=== PATIENT | female | born 2000 | race Two or more races ===

== ENCOUNTER 2025-01-28 20:24 | Emergency (ER) | payer OTHER ==
[~2025-01-28] VITALS: Ht 154.9 cm; Wt 56.8 kg
[2025-01-28 20:27] VITALS: BP 145/128; PULSE 124; RESP 22; TEMP 98.3; O2SAT 100
[2025-01-28] MEDS ORDERED: ONDANSETRON HCL 4 MG/2 ML VIAL IM ONE (21:00)
[2025-01-28] MEDS ORDERED: LIDOCAINE VISCOUS 2% 15ML UD MT ONE (21:00)
[2025-01-28] MEDS ORDERED: MAALOX PLUS or MAALOX 30 ML PO ONE (21:00)
[2025-01-28 21:26] LABS: Hematocrit 44.4 % (36.0-46.0); Hemoglobin 15.1 g/dL (12.2-16.2); Mean Corpuscular Hemoglobin 28.0 pg (28.0-32.0); Mean Corpuscular Volume 82.3 fL (80.0-100.0); Nucleated Red Blood Cells % 0.2 %
[2025-01-28 21:40] LABS: Alkaline Phosphatase 79 U/L (46-116); Anion Gap 14 (5-15); BUN/Creatinine Ratio 7.2 (10.0-20.0); Calcium 10.0 mg/dL (8.7-10.4); Carbon Dioxide 24 mmol/L (20-31); Chloride 103 mmol/L (98-107); Sodium 141 mmol/L (136-145)
[2025-01-28 21:41] LABS: Bilirubin, Total 0.5 mg/dL (0.2-1.0)
[2025-01-28 21:44] LABS: Alanine Aminotransferase 93 U/L (7-40); Albumin 5.0 g/dL (3.2-4.8); Blood Urea Nitrogen 6 mg/dL (9-23); Glucose 113 mg/dL (74-106); Lipase 68 U/L (12-53); Potassium 3.3 mmol/L (3.5-5.1); Total Protein 8.4 g/dL (5.7-8.2)
[2025-01-28] MEDS ORDERED: IOHEXOL 300 MG/ML 100ML BOTTLE IJ ONE (22:28)
--- NOTE | 2025-01-28 23:28 | ED.PDOC ---
GI ASSESSMENT HPI Comments Patient complaining of nausea and vomiting and abdominal pain x1 week. States she was recently seen at [facility] at [place]. Says she was discharged two days ago with the antibiotics and pantoprazole. She does not remember what infection she had. States she has felt no significant improvement since her discharge from the other hospital. States no new foods. Has been taking antibiotics and pantoprazole as prescribed. Patient continues to have midepigastric pain. 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 INJECTION MOLDING MACHINE OPERATOR History Constitutional: denies: chills, diaphoresis, fatigue, fever, malaise, sweats, weakness, others EENTM: denies: blurred vision, double vision, ear bleeding, ear discharge, ear drainage, ear pain, ear ringing, eye pain, eye redness, hearing loss, mouth pain, mouth swelling, nasal discharge, nose bleeding, nose congestion, nose pain, photophobia, tearing, throat pain, throat swelling, voice changes, others Respiratory: denies: cough, hemoptysis, orthopnea, SOB at rest, shortness of breath, SOB with excertion, stridor, wheezing, others Cardiovascular: denies: chest pain, dizzy spells, diaphoresis, Dyspnea on exertion, edema, irregular heart beat, left arm pain, lightheadedness, palpitations, PND, syncope, others Gastrointestinal: reports: abdominal pain, nausea, vomiting; denies: abdomen distended, blood streaked bowels, constipated, diarrhea, dysphagia, difficulty s wallowing, hematemesis, melena, poor appetite, poor fluid intake, rectal bleeding, rectal pain, others Genitourinary: denies: abnormal vagina bleeding, burning, dyspareunia, dysuria, flank pain, frequency, hematuria, incontinence, pain, , vagina discharge, urgency, others Neurological: denies: dizziness, fainting, headache, left sided numbness, left sided weakness, numbness, paresthesia, pre-existing deficit, right sided numbness, right sided weakness, seizure, speech problems, tingling, tremors, weakness, others Musculoskeletal: denies: back pain, gout, joint pain, joint swelling, muscle pain, muscle stiffness, neck pain, others Integumetry: denies: bruises, change in color, change in hair/nails, dryness, laceration, lesions, lumps, rash, wounds, others Allergic/Immunocompromised: denies: Difficulty Healing, Frequent Infections, Hives, Itching, others Hematologic/Lymphatic: denies: anemia, blood clots, easy bleeding, easy bruising, swollen glands, others Physical Exam General Appearance: Moderate Distress, Normal HEENT: Normal ENT Inspection, Pharynx Normal, TMs Normal Neck: Full Range of Motion, Non-Tender, Normal, Normal Inspection Respiratory: Chest Non-Tender, Lungs Clear, No Accessory Muscle Use, No Respiratory Distress, Normal Breath Sounds Cardiovascular: No Edema, No JVD, No Murmur, No Gallop, Normal Peripheral Pulses, Regular Rate/Rhythm Breast Exam: Deferred Gastrointestinal: No Organomegaly, Non Tender, No Pulsatile Mass, Normal Bowel Sounds, Soft Genitalia: Deferred Pelvic: Deferred Rectal: Deferred Extremities: No calf tenderness, Normal capillary refill, Normal inspection, Normal range of motion, Non-tender, No pedal edema Musculoskeletal : Apperance: Normal Neurologic: Alert, 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 Was a procedure done?: No GI differential Dx Differential Diagnosis: Bowel Obstruction, Cholangitis, Cholecystitis, Gastritis/PUD, Gastroenteritis, UTI X-Ray, Labs, Meds, VS Vital Signs Date Time Temp Pulse Resp B/P (MAP) Pulse Ox O2 Delivery O2 Flow Rate FiO2 01/28/25 20:27 98.3 124 22 145/128 100 98.3 Lab Test 01/28/25 21:03 Range/Units White Blood Count 7.9 4.4-10.8 10^3/uL Red Blood Count 5.39 H 4.0-5.20 10^6/uL Hemoglobin 15.1 12.2-16.2 g/dL Hematocrit 44.4 36.0-46.0 % Mean Corpuscular Volume 82.3 80.0-100.0 fL Mean Corpuscular Hemoglobin 28.0 28.0-32.0 pg Mean Corpuscular Hemoglobin Concent 34.0 32.0-36.0 g/dL Red Cell Distribution Width 13.8 11.8-14.3 % Platelet Count 411 140-450 10^3/uL Mean Platelet Volume 8.1 6.9-10.8 fL Neutrophils (%) (Auto) 80.5 H 37.0-80.0 % Lymphocytes (%) (Auto) 14.8 10.0-50.0 % Monocytes (%) (Auto) 4.1 0.0-12.0 % Eosinophils (%) (Auto) 0.1 0.0-7.0 % Basophils (%) (Auto) 0.5 0.0-2.0 % Neutrophils # (Auto) 6.3 1.6-8.6 10 ^3/uL Lymphocytes # (Auto) 1.2 0.4-5.4 10 ^3/uL Monocytes # (Auto) 0.3 0-1.3 10 ^3/uL Eosinophils # (Auto) 0 0-0.8 10 ^3/uL Basophils # (Auto) 0 0-0.2 10 ^3/uL Nucleated Red Blood Cells 0.2 % Sodium Level 141 136-145 mmol/L Potassium Level 3.3 L 3.5-5.1 mmol/L Chloride Level 103 98-107 mmol/L Carbon Dioxide Level 24 20-31 mmol/L Anion Gap 14 5-15 Blood Urea Nitrogen 6 L 9-23 mg/dL Creatinine 0.83 0.550-1.02 mg/dL Glomerular Filtration Rate Calc 102 >90 mL/min BUN/Creatinine Ratio 7.2 L 10.0-20.0 Serum Glucose 113 H 74-106 mg/dL Lactic Acid Level 2.0 0.4-2.0 mmol/L Calcium Level 10.0 8.7-10.4 mg/dL Total Bilirubin 0.5 0.2-1.0 mg/dL Aspartate Amino Transferase (AST) 55 H 13-40 U/L Alanine Aminotransferase (ALT) 93 H 7-40 U/L Alkaline Phosphatase 79 46-116 U/L Total Protein 8.4 H 5.7-8.2 g/dL Albumin 5.0 H 3.2-4.8 g/dL Lipase 68 H 12-53 U/L X-Ray, Labs, Meds, VS Comment Patient eloped Time of 1ST Reevaluation: 23:28 Reevaluation 1ST: Unchanged Patient Education/Counseling: Diagnosis, Treatment Family Education/Counseling: No Family Present SEPSIS Sepsis Screen Date sepsis recognized/suspect: Jan 28, 2025 Time Sepsis recognized/suspect: 2032 Recent Procedure: No On Antibiotic Therapy: No Respiratory Rate >20: Yes Heart Rate >90: Yes Temp<36 C (96.8 F) or >38.3 C: No SBP <90 or MAP <65 mmHG: No New Acute Mental Status Change: No Is the patient on CPAP, BIPAP,: No Physician Orders Urinalysis (01/28/25 20:46) Blood Culture (01/28/25 20:46) Vital Signs Date Time Temp Pulse Resp B/P (MAP) Pulse Ox O2 Delivery O2 Flow Rate FiO2 01/28/25 20:27 98.3 124 22 145/128 100 98.3 Laboratory Tests Test 01/28/25 21:03 Lactic Acid Level 2.0 mmol/L (0.4-2.0) White Blood Count 7.9 10^3/uL (4.4-10.8) Departure 1 Departure Time of Disposition: 23:27 Impression: Primary Impression: Gastritis Qualified Codes: K29.70 - Gastritis, unspecified, without bleeding Disposition: LEFT AWOL/ELOPED Condition: Stable Discharged With: Self Critical Care Note Critical Care Time?: No Stability Stability form required: No Heart Score Heart Score: Heart Score Response (Comments) Value History N/A 0 EKG N/A 0 Age N/A 0 Risk Factors N/A 0 Troponin N/A 0 Total 0 IRENE GREENBERG Jan 28, 2025 23:28
== END 2025-01-28 22:39 | disposition left against medical advice (07) ==
LOC: ER 20:24
DX: K29.70 Gastritis, unspecified, without bleeding (principal)
CPT/HCPCS: 36415; 80053; 82947; 83605; 83690; 85025; 87040